=== PATIENT | male | born 1985 | race Caucasian/White ===

== ENCOUNTER 2020-02-04 12:51 | Emergency (ER) | payer OTHER, SELFPAY ==
[2020-02-04 13:08] VITALS: BP 148/74; PULSE 98; RESP 16; TEMP 36.8; O2SAT 98
--- NOTE | 2020-02-04 13:16 | ED.GENADULT ---
HPI - General Adult General Chief complaint: Abdominal Pain Stated complaint: left side pain Time Seen by Provider: 02/04/20 13:16 Source: patient and RN notes reviewed Mode of arrival: ambulatory Limitations: no limitations History of Present Illness HPI narrative: 34-year-old male presents with complaint of left anterior rib cage pain for the past 7 days. CBD oil with little relief. No known injury. Guille says he do carry medium-large item against him at work and this could be the cause of his discomfort. Denies difficulty breathing or cough. Denies hitting anterior trunk to his knowledge. No bruising area. No deformity. Exacerbating factors consist of taking a deep breath. Relieving factor consist of resting. Denies fever or chills. Denies dysuria or hematuria. Denies constipation, LBM this morning and normal. No cardiac chest pain, wheezing, or shortness of breath. Denies syncopal, abdominal pain, nausea, and vomiting. Tolerating intake well. Remains active. The patient reports he have not been diagnosed with COVID-19. The patient reports he is not waiting for the results of a COVID-19 lab test. The patient reports he do not have fever, chills, weakness, or fatigue. The patient reports he do not have a new or worsening cough. The patient reports he do not have any rhinorrhea, congestion, loss of taste, sore throat, and diarrhea. Denies recent traveling. Denies concerns for COVID-19 or exposures been home with limited outdoor exposure except for essential household needs, work, and return home. At this time, patient is not suspected of having COVID-19. Some parts of this dictation were generated by voice recognition software and may contain typographical and/or grammatical inaccuracies. Related Data Home Medications Medication Instructions Recorded Confirmed No Home Medications 02/04/20 02/04/20 Allergies Allergy/AdvReac Type Severity Reaction Status Date / Time Penicillins Allergy Mild Verified 05/10/19 15:01 Review of Systems Review of Systems: Narrative: CONSTITUTIONAL: Denies fever, chills, sweats. EYES: Denies visual changes, redness, discharge. ENT: Denies rhinorrhea, congestion, sore throat, otalgia. CARDIOVASCULAR: Denies chest pain, palpitations, edema. RESPIRATORY: Denies dyspnea, wheezing, cough. GASTROINTESTINAL: Denies abdominal pain, nausea, vomiting, diarrhea. GENITOURINARY: Denies dysuria, hematuria, abnormal discharge. SKIN: Denies rash or itching. MUSCULOSKELETAL: Denies acute back pain, joint pain, myalgia. Complains of acute left anterior rib cage tenderness. NEUROLOGIC: Denies numbness or focal weakness. PSYCHIATRIC: Denies anxiety or depression. All systems reviewed & are unremarkable except as noted in HPI and below. [facility] Past Medical History Medical History (Updated 02/04/20 @ 13:34 by VIMAL Gutierrez) Anxiety Back pain Chronic Surgical History Surgical History (Updated 02/04/20 @ 13:31 by VIMAL Gutierrez) H/O right inguinal hernia repair Bilateral x2 History of hernia surgery Family History Family History (Updated 02/04/20 @ 13:32 by VIMAL Gutierrez) Father Acute myocardial infarction Mother Lung cancer Social History Social History (Updated 02/04/20 @ 13:32 by VIMAL Gutierrez) Smoking status: Former smoker Tobacco type: cigarettes Second hand tobacco smoke exposure: No Alcohol intake: current Substance use: current Substance use type: marijuana Living arrangements: with family Occupation/Education: occupation Gender identity (if verbalized by the patient): Male Sexual Orientation (if Verbalized by the Patient): Straight or Heterosexual Comments At time of signature, agree with nurse past medical, surgical, social, and family history. There is no relevant family history pertinent to the presenting complaint. Exam Narrative: Exam Narrative: GENERAL: This is a well-nourished, well-d
== END 2020-02-04 13:40 | disposition home or self-care (01) ==
PROVIDERS: Emergency Provider Nurse Practitioner Family; PCP Family Medicine Adolescent Medicine
DX: S20.212A Contusion of left front wall of thorax, initial encounter (principal); Z87.891 Personal history of nicotine dependence; X58.XXXA Exposure to other specified factors, initial encounter
CPT/HCPCS: 99212; G0463

== ENCOUNTER 2021-04-26 08:18 | Emergency (ER) | payer OTHER, SELFPAY ==
[2021-04-26 08:30] VITALS: BP 168/93; PULSE 125; RESP 18; TEMP 36.9; O2SAT 100
[2021-04-26 08:32] VITALS: BP 168/93; PULSE 125; RESP 18; TEMP 36.9; O2SAT 100
--- NOTE | 2021-04-26 08:51 | ED.GENADULT ---
HPI - General Adult General Chief complaint: Arrhythmia/Palpitations Stated complaint: Rapid Hear Beat Time Seen by Provider: 04/26/21 08:51 Source: patient Mode of arrival: ambulatory History of Present Illness HPI narrative: patient presents with feeling of anxiety after starting new medications 2 days ago for anxiety. patient started on 50 mg sertraline and 15 mg of BuSpar 3 ays ago. patient denies any chest pain or shortness of breath. Related Data Home Medications Medication Instructions Recorded Confirmed buspirone 15 mg PO DAILY 04/26/21 04/26/21 sertraline 50 mg PO DAILY 04/26/21 04/26/21 Allergies Allergy/AdvReac Type Severity Reaction Status Date / Time Penicillins Allergy Mild Hives Verified 04/26/21 08:31 Review of Systems Review of Systems: CONSTITUTIONAL: Denies fever, chills, or sweats. EYES: Denies visual changes, redness, or discharge. ENT: Denies rhinorrhea, congestion, sore throat, or otalgia. CARDIOVASCULAR: Denies chest pain, palpitations, or edema. RESPIRATORY: Denies cough or dyspnea. GASTROINTESTINAL: Denies abdominal pain, nausea, vomiting, or diarrhea. GENITOURINARY: Denies dysuria or hematuria. SKIN: Denies rash or itching. MUSCULOSKELETAL: Denies back pain, joint pain, or myalgia. NEUROLOGIC: Denies headache, numbness, or weakness. PSYCHIATRIC: Denies anxiety or depression. [facility] Past Medical History Medical History (Updated 04/26/21 @ 08:56 by VIMAL Gillespie) Anxiety Back pain Chronic Surgical History Surgical History (Updated 02/04/20 @ 13:31 by VIMAL Gutierrez) H/O right inguinal hernia repair Bilateral x2 History of hernia surgery Family History Family History (Updated 02/04/20 @ 13:32 by VIMAL Gutierrez) Father Acute myocardial infarction Mother Lung cancer Social History Social History (Updated 02/04/20 @ 13:32 by VIMAL Gutierrez) Smoking status: Former smoker Tobacco type: cigarettes Second hand tobacco smoke exposure: No Alcohol intake: current Substance use: current Substance use type: marijuana Gender identity (if verbalized by the patient): Male Sexual Orientation (if Verbalized by the Patient): Straight or Heterosexual Comments My past is Exam Narrative: GENERAL: Well-appearing, well-nourished, and in no acute distress. HEAD: Normocephalic, atraumatic. EYES: PERRLA and EOMI. ENT: Nares clear, no rhinorrhea or epistaxis. Mucous membranes moist. NECK: Supple. CHEST: Clear to auscultation. No respiratory distress. HEART: Regular rate and rhythm. No murmur heard. Normal peripheral pulses. ABDOMEN: Soft, nontender, nondistended, normal active bowel sounds. EXTREMITIES: Normal range of motion. No edema. SKIN: Warm, dry, no rash. NEURO: No focal deficits. Alert and oriented x3. [place] Coma Scale Eye Opening: Spontaneous 4 Rahul Coma Scale Motor: Obeys Commands 6 [place] Coma Scale Verbal: Oriented 5 [place] Coma Scale Total 15 Course Vital Signs Vital signs: Vital Signs Temperature 36.9 C 04/26/21 08:30 Pulse Rate 125 H 04/26/21 08:30 Respiratory Rate 18 04/26/21 08:30 Blood Pressure 168/93 H 04/26/21 08:30 Pulse Oximetry 100 04/26/21 08:30 Temperature 36.9 C 04/26/21 08:32 Pulse Rate 125 H 04/26/21 08:32 Respiratory Rate 18 04/26/21 08:32 Blood Pressure 168/93 H 04/26/21 08:32 Pulse Oximetry 100 04/26/21 08:32 Addressed elevated BP today. Today's blood pressure higher than recommended range. Discussed importance of follow -up with PCP and possible correction effects/cardiovascular events related to HTN. Currently patient denies headache, dizziness, vision changes, CP or shortness of breath. Critical dx considered and discussed with pt. Educated patient on red flag s/s and to go to ED if s/s occur. Discussed with pt when to return to [facility] or primary care provider. Pt gave verbal undertstanding, all questions were answered, and pt was agreeable to julienne
== END 2021-04-26 09:00 | disposition home or self-care (01) ==
PROVIDERS: Emergency Provider Nurse Practitioner Family; PCP Family Medicine Adolescent Medicine
DX: F41.9 Anxiety disorder, unspecified (principal); T50.905A Adverse effect of unspecified drugs, medicaments and biological substances, initial encounter
CPT/HCPCS: 99211; G0463

== ENCOUNTER 2022-10-09 18:38 | Emergency (ER) | payer OTHER, SELFPAY ==
[2022-10-09 18:48] VITALS: BP 154/100; PULSE 110; RESP 12; TEMP 36.9; O2SAT 98
--- NOTE | 2022-10-09 18:51 | ED.URI ---
HPI - URI/Sore Throat General Chief Complaint: Upper Respiratory Infection Stated Complaint: Cough Time Seen by Provider: 10/09/22 18:52 Source: patient, RN notes reviewed and old records reviewed Mode of arrival: ambulatory Limitations: no limitations History of Present Illness HPI Narrative: 37 year old male presents to [facility] with complaints of 2 week duration of sinus congestion and drainage low grade temperatures,sinus pressure and some feelings of chest congestion with cough. Patient reports history of sinus infections and is leaving a few days for vacation.Patient has been taking Zenaida,Flonase and using nasal saline without improvement in his symptoms. Patient reports allergy to Penicillin but states he has taken Keflex in past for sinus issues without reaction. MD elicited complaint: fever (low grade), cough, rhinorrhea, nasal congestion and sinus pain Onset (ago): week(s) (2) Pain scale (0-10): 4 Treatments prior to arrival: acetaminophen, cold medicine and other (antihistamines and Flonase) Related Data Home Medications Medication Instructions Recorded Confirmed omeprazole 40 mg capsule,delayed 20 mg PO DAILY 12/30/21 10/09/22 release Allergies Allergy/AdvReac Type Severity Reaction Status Date / Time Penicillins Allergy Mild Hives Verified 10/09/22 18:39 amoxicillin [From Augmentin] AdvReac Severe Rash Verified 10/09/22 18:39 clavulanic acid AdvReac Severe Rash Verified 10/09/22 18:39 [From Augmentin] buspirone AdvReac Intermediate worsened Verified 10/09/22 18:39 anxiety Review of Systems Review of Systems: CONSTITUTIONAL: Reports malaise, chills, sweats, low grade fever. EYES: Denies visual changes, redness, or discharge. ENT: Reports rhinorrhea, congestion, sinus pain, no otalgia, some sore throat. CARDIOVASCULAR: Denies chest pain, palpitations, or edema. RESPIRATORY: Reports cough.? Denies dyspnea. GASTROINTESTINAL: Denies abdominal pain, nausea, vomiting, diarrhea SKIN: Denies rash or itching. MUSCULOSKELETAL: Denies myalgia. NEUROLOGIC:intermittent headache. All systems reviewed & are unremarkable except as noted in HPI and below PMFSH Past Medical History Medical History (Updated 10/12/22 @ 00:01 by Sudhir Patel) Anxiety Back pain Chronic Surgical History Surgical History H/O right inguinal hernia repair Bilateral x2 History of hernia surgery Family History Family History Father Acute myocardial infarction Heart disease Mother No problems noted. Grandparent Acute myocardial infarction Breast cancer Other Lung cancer Social History Social History Smoking status: Former smoker Tobacco type: cigarettes Second hand tobacco smoke exposure: No Alcohol intake: current Substance use: current Substance use type: marijuana Living arrangements: with family Occupation/Education: occupation Gender identity (if verbalized by the patient): Male Sexual Orientation (if Verbalized by the Patient): Straight or Heterosexual Comments At time of signature, agree with nursing past medical, surgical, social and family history. There is no relevant family history pertinent to the presenting complaint Exam Narrative: GENERAL: Well-appearing, well-nourished, and in no acute distress. HEAD: Normocephalic EYES: PERRLA, conjunctivae clear ENT: Nares clear, turbinates edematous and erythematous, clear discharge, sinus pressure, headache. Mucous membranes moist. TM pearly steele with dull light reflex bilaterally; no tragal tenderness. Oropharynx erythematous without lesions. Tonsils not enlarged and without exudate, no drooling, no hoarseness, no trismus, uvula midline.post nasal discharge NECK: Supple. No lymphadenopathy CHEST: Clear to auscultation, breath
[2022-10-09 19:08] VITALS: BP 152/100
[2022-10-09 19:10] VITALS: BP 133/102
== END 2022-10-09 19:10 | disposition home or self-care (01) ==
PROVIDERS: Emergency Provider Registered Nurse; PCP Family Medicine Adolescent Medicine
DX: J32.9 Chronic sinusitis, unspecified (principal); Z87.891 Personal history of nicotine dependence
CPT/HCPCS: 99213; G0463